=== PATIENT | female | born 1990 | race Caucasian/White ===

== ENCOUNTER 2019-04-13 19:55 | Inpatient (IN) | payer BC, OTHER ==
[2019-04-13 21:24] LABS: BASO % 0.2 % (0-2.0); EOS % 0.8 % (0-4.5); HEMATOCRIT 36.5 % (32.4-45.2); LYMPH % 28.7 % (8-40); MCH 27.4 pg (25.7-33.7); MEAN PLT VOLUME 8.3 fl (7.5-11.1); MONO % 7.4 % (3.8-10.2); NEUT % 62.9 % (42.8-82.8); PLATELET COUNT 263 K/MM3 (134-434); RDW 14.7 % (11.6-15.6); WHITE BLOOD COUNT 9.3 K/mm3 (4.0-10.0)
[2019-04-13] MEDS ORDERED: BUTORPHANOL TARTRATE 1 MG/ML VIAL IVPB ONE (21:28)
[2019-04-13] MEDS ORDERED: PROMETHAZINE HCL 25 MG/1 ML VIAL IVPUSH ONE (21:28)
[2019-04-13] MEDS ORDERED: DINOPROSTONE 10 MG VAGINAL SUPPOSITORY VG ONE (21:30)
[2019-04-13 21:38] LABS: PROTHROMBIN TIME (PATIENT) 11.8 SEC (9.7-13.0)
--- NOTE | 2019-04-13 21:40 | HP ---
Past Medical History - Primary Care Physician PCP:: Renae Olivares - Admission Chief Complaint: Gestational Hypertension History of Present Illness: EDC 04/01/19 EGA 41.5 weeks admitted for gestational HTN obesity and postdates for cervidil induction x 1 7lb 3 oz Limitations to Obtaining History: No Limitations - Past Medical History Cardiovascular: Yes: HTN, Other (h/o PVCs, last EKG WNL, asymptomatic currently) Pulmonary: Yes: Asthma (well controlled) Renal/: Yes: Hematuria (gross hematuria last week - microscopic hematuria in hospital over weekend), Renal Calculi (hospitalized for renal calculi during 2nd trimester). 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) - Past Surgical History Past Surgical History: Yes: None, Tonsillectomy (and uvula removal) Hx Myomectomy: No Hx Transabdominal Cerclage: No - Smoking History Smoking history: Never smoked Have you smoked in the past 12 months: No - Alcohol/Substance Use Hx Alcohol Use: No History of Substance Use: reports: None - Social History Usual Living Arrangement: Yes: With Spouse ADL: Independent History of Recent Travel: No Home Medications - Allergies Allergies/Adverse Reactions: Allergies Allergy/AdvReac Type Severity Reaction Status Date / Time corn Allergy Severe Swelling Verified 04/13/19 22:19 Latex, Natural Rubber Allergy Mild Rash Verified 04/13/19 22:19 Penicillins Allergy Mild Hives Verified 04/13/19 22:19 scarlett Allergy Mild Rash Verified 04/13/19 22:19 nut - unspecified Allergy Verified 04/13/19 22:19 PEACHES Allergy Mild Rash Uncoded 04/13/19 22:19 SEAFOOD Allergy Mild Vomiting Uncoded 04/13/19 22:19 - Home Medications Home Medications: Ambulatory Orders Vitamins (Sjr) - 1 tab PO DAILY 04/02/16 Family Disease History - Family Disease History Family Disease History: Other: Grandparent (nephrilithiasis), Brother ( nephrolithiasis) Review of Systems - Review of Systems Constitutional: reports: No Symptoms Eyes: reports: No Symptoms HENT: reports: No Symptoms Neck: reports: No Symptoms Cardiovascular: reports: No Symptoms Respiratory: reports: No Symptoms Gastrointestinal: reports: No Symptoms Genitourinary: reports: No Symptoms Breasts: reports: No Symptoms Reported Musculoskeletal: reports: No Symptoms Integumentary: reports: No Symptoms Neurological: reports: No Symptoms Endocrine: reports: No Symptoms Hematology/Lymphatic: reports: No Symptoms Psychiatric: reports: No Symptoms Physical Exam - Maternity Vital Signs: Vital Signs Temperature Pulse Rate 85 04/13/19 21:00 Respiratory Rate 20 04/13/19 21:00 Blood Pressure 142/80 04/13/19 21:00 O2 Sat by Pulse Oximetry (%) Constitutional: Yes: Well Nourished, Obese HENT: Yes: WNL Neck: Yes: WNL Cardiovascular: Yes: WNL Lungs: Clear to auscultation Breast(s): Yes: WNL - Abdominal Exam/OB Fundal Height: 41 Number of Fetuses: Single Contractions: No Category: I Accelerations: Non-Uniform Decelerations: None - Vaginal Exam/OB Dilatation (cm): 1-2 Effacement (%): 80 Amniotic Membrane Status: Intact Presentation: Vertex/Position Station: -2 - Physical Exam Musculoskeletal: Yes: WNL Extremities: Yes: WNL Psychiatric: Yes: WNL, Alert, Oriented Hemorrhage Risk Assessment - Risk Factors Risk Score: 0 Risk Level: Low Risk Problem List - Problems (1) Obesity affecting in third trimester Code(s): O99.213 - OBESITY COMPLICATING , THIRD TRIMESTER (2) Post-dates Code(s): O48.0 - POST-TERM Qualifiers: Post-term type: 40-42 weeks gestation Qualified Code(s): O48.0 - Post-term (3) Gestational hypertension affecting second Code(s): O13.9 - GESTATIONAL HTN W/O SIGNIFICANT PROTEINURIA, UNSP TRIMESTER Assessment/Plan Gestational DM x 1 obesity Cat 1 GBS neg Post dates Plan Cervidil continue present management
[2019-04-13 21:41] LABS: ACTIVATED PTT 27.5 SECONDS (25.2-36.5)
[2019-04-13 21:43] VITALS: BMI 48.2
[2019-04-13 21:43] LABS: BLOOD UREA NITROGEN 13.6 mg/dL (7-18); CREATININE 0.5 mg/dL (0.55-1.3); POTASSIUM 4.3 mmol/L (3.5-5.1)
[2019-04-14] MEDS: ELECTROLYTE-148 SOLN 1,000 ML IV SCH ×2 (09:15→15:00)
[2019-04-14] MEDS ORDERED: PROMETHAZINE HCL 25 MG/1 ML VIAL ONE (09:42)
[2019-04-14] MEDS ORDERED: BUTORPHANOL TARTRATE 1 MG/ML VIAL ONE ×2 (09:42)
--- NOTE | 2019-04-14 10:48 | PN ---
Ante-Partal Exam - Subjective Subjective: Pt uncomfortable s/p stadol/phenergan Vital Signs: Vital Signs Temperature 98.0 F 04/14/19 10:00 Pulse Rate 68 04/14/19 10:00 Respiratory Rate 20 04/14/19 10:00 Blood Pressure 112/68 04/14/19 10:00 O2 Sat by Pulse Oximetry (%) Bleeding: No Headache: No Visual changes: No Right upper quadrant pain: No - Contractions Contractions: Yes Regularity: Regular Intensity: Mild/Mod - Exam during Labor Heart Rate: 140 Variability: Moderate Category: I Monitor Accelerations: Absent Monitor Decelerations: None Exam: Vaginal Dilatation (cm): 4 Effacement (%): 80 Amniotic Membrane Status: Bulging Presentation: Vertex Station: -2 - Assessment/Plan Assessment/Plan: For epidural then AROM continue present management
[2019-04-14] MEDS ORDERED: LIDO 2%/EPI 1:200000 PRESRVFRE (20 ML SDVIAL) ONE ×3 (10:59→18:35)
[2019-04-14] MEDS ORDERED: BUPIVACAINE HCL/PF 2.5 MG/ML - 30 ML VIAL IJ ONE (10:59)
[2019-04-14] MEDS: FENTANYL/BUPIVACAINE/NS/PF - PCEA - 50 ML DISP.SYRIN EP SCH (11:00)
[2019-04-14] MEDS ORDERED: FENTANYL/BUPIVACAINE/NS/PF - PCEA - 50 ML DISP.SYRIN EP ONE ×2 (11:01→15:23)
[2019-04-14] MEDS ORDERED: NALOXONE HCL 0.4 MG/ML VIAL IVPUSH PRN (11:20)
--- NOTE | 2019-04-14 12:13 | PN ---
Ante-Partal Exam - Subjective Subjective: Pt s/p epidural, feeling comfortable. Vital Signs: Vital Signs Temperature 98.0 F 04/14/19 10:00 Pulse Rate 68 04/14/19 10:00 Respiratory Rate 20 04/14/19 10:00 Blood Pressure 112/68 04/14/19 10:00 O2 Sat by Pulse Oximetry (%) Bleeding: No Headache: No Visual changes: No Right upper quadrant pain: No - Contractions Contractions: Yes Regularity: Regular Intensity: Strong - Exam during Labor Heart Rate: 130 Category: II Monitor Decelerations: Variable (nonrecurrent, isolated) Exam: Vaginal Dilatation (cm): 5-6 Effacement (%): 90 Amniotic Membrane Status: Bulging (AROM for clear fluid at this exam) Presentation: Vertex Station: -1 - Assessment/Plan Assessment/Plan: Pt with 2 variable decelerations which prompted by evaluation cervix 5-6cm dilated, AROM for clear fluid, internal lead/FSE placed left tilt, oxygen applied continue to monitor
--- NOTE | 2019-04-14 15:30 | PN ---
Ante-Partal Exam - Subjective Subjective: Came to evaluate patient for prolonged deceleration. Pt with some discomfort , just bolused herself with epidural medication. Vital Signs: Vital Signs Temperature 98.3 F 04/14/19 13:00 Pulse Rate 81 04/14/19 14:15 Respiratory Rate 20 04/14/19 14:15 Blood Pressure 142/73 04/14/19 14:15 O2 Sat by Pulse Oximetry (%) 100 04/14/19 14:15 Bleeding: No Headache: No Visual changes: No Right upper quadrant pain: No Pain (scale 1-10): 6 - Contractions Regularity: Regular Intensity: Mod/Strong - Exam during Labor Category: II Monitor Decelerations: Prolonged Exam: Vaginal Dilatation (cm): 8 Effacement (%): 90 Amniotic Membrane Status: Ruptured Presentation: Vertex - Assessment/Plan Assessment/Plan: Pt with oxygen left lateral tilt continue close observation if has another prolonged deceleration without cervical dilation progress will plan for delivery
[2019-04-14] MEDS ORDERED: ONDANSETRON 4 MG/2 ML VIAL IVPUSH PRN (19:04)
[2019-04-14] MEDS ORDERED: IBUPROFEN 600 MG TABLET (FP) PO PRN (19:04)
[2019-04-14] MEDS ORDERED: BENZOCAINE 20% 57 GM BOTTLE TP PRN (19:56)
[2019-04-14] MEDS ORDERED: IBUPROFEN 800 MG/8 ML IJ IVPB PRN (19:56)
[2019-04-14] MEDS ORDERED: BENZOCAINE 28 GM HEMORRHOIDAL OINTMENT PR PRN (19:56)
[2019-04-14] MEDS ORDERED: WITCH HAZEL 50% (TUCKS) 40 PAD/JAR PAD TP PRN (19:56)
[2019-04-14] MEDS ORDERED: METHYLERGONOVINE MALEATE 0.2 MG/1 ML AMP IM PRN (19:56)
[2019-04-14] MEDS ORDERED: diphenhydrAMINE HCL 25 MG CAPSULE (FP) PO PRN (19:56)
[2019-04-14] MEDS ORDERED: ACETAMINOPHEN 325 MG TABLET (FP) PO PRN (19:56)
[2019-04-14] MEDS ORDERED: D5W-LR W/ 20 UNITS OXYTOCIN 20 UNIT/1,000 ML INFUS.BAG IV SCH (20:00)
--- NOTE | 2019-04-14 20:13 | OP ---
Operative Note - Note: Operative Date: 04/14/19 Pre-Operative Diagnosis: SIUP at 38.6 weeks, IOL for gestational HTN, Obesity, category 2 FHR tracing with prolonged decelerations Operation: primary LTCS Findings: normal b/l tubes and ovaries Post-Operative Diagnosis: Same as Pre-op Surgeon: Renae Olivares Sales Producer: Abraham Chávez Anesthesiologist/[employer]AR [employer] SALES SPECIALIST: Elvis Oreilly Anesthesia: Epidural Specimens Removed: placenta Estimated Blood Loss (mls): 800 Operative Report Dictated: Yes
[2019-04-14] MEDS ORDERED: oxyCODONE HCL 5 MG TABLET PO PRN (20:19)
[2019-04-15] MEDS: NITROFURANTOIN MACROCRYSTAL 50 MG CAPSULE (FP) PO SCH ×5 (00:25→23:21)
--- NOTE | 2019-04-15 06:24 | OP ---
DATE OF OPERATION: 04/14/2019 PREOPERATIVE DIAGNOSES: Single intrauterine at 38.6 weeks, induction of labor for gestational hypertension, prolonged decelerations, maternal obesity. POSTOPERATIVE DIAGNOSES: Single intrauterine at 38.6 weeks, induction of labor for gestational hypertension, prolonged decelerations, maternal obesity. PROCEDURE: Emergent Primary low transverse section. SURGEON: Renae Olivares DO ANESTHESIA: Elvis Oreilly MD AIRCRAFT STRUCTURAL DESIGN ENGINEER: JASMEET Wilburn ,- No physician available for assistance due to emergent condition of case. COMPLICATIONS: None. ESTIMATED BLOOD LOSS: 800 mL. SPECIMENS REMOVED: Placenta. DISPOSITION: Stable to PACU. COUNTS: Sponge, needle and instrument count correct. BRIEF HISTORY AND PROCEDURE: Patient is a 28-year-old female who was admitted to [facility] on April 13, 2019, for induction of labor secondary to gestational hypertension. She was given Cervidil the night of April 13, 2019. On the morning of April 14 was found to be 3 to 4 cm dilated. She received an epidural. Her membranes were artificially ruptured and she was monitored throughout the day. She spontaneously was in labor at this time without any induction agents. She had a category 2 heart rate tracing on and off throughout the day with recurrent and non recurrent variable decelerations. However, she was still making cervical dilation progress. At approximately 1830 hours the patient was examined and found to be 9 cm dilated and was found to have recurrent variable decelerations but still with good variability and accelerations. Approximately 20 minutes later patient began to have recurrent prolonged decelerations at which point it was planned to have a delivery. The patient was taken back to the operating room and placed in the dorsal supine position. The Dickson catheter had been earlier placed under sterile conditions as the patient had a working epidural. Epidural was bolused for the procedure. She was prepped and draped in the usual sterile fashion. A hard timeout was performed. A Pfannenstiel skin incision was created in the skin with a scalpel and carried to the underlying layer of rectus fascia sharply. The fascia was incised on either side of the midline and this fascia was incised in a superolateral direction sharply. The fascia was tented upward and dissected off the underlying layer of rectus muscle sharply. The musculature was identified and laterally. The peritoneum was entered bluntly and a bladder blade was inserted. A transverse incision was created in the lower uterine segment which was extended in a superolateral direction bluntly. The infant was delivered from the direct OP position with a noted loose body cord. Bilateral shoulders and remainder of delivered with ease. The cord was clamped and cut. The infant was taken over to the warmer to be assessed by neonatology staff where Apgars of 8 and 9 were assigned. Placenta was delivered with a 3-vessel cord and intact. The uterus was exteriorized, inspected and cleared of all remaining debris with a dry lap sponge. The hysterotomy was reapproximated in a single-layer closure using 0 Biosyn. The angles of the hysterotomy appear to extend down towards the cervix. These were repaired with figure-of-8 sutures using 0 Biosyn suture until excellent hemostasis was achieved and the hysterotomy was well approximated. Bilateral tubes and ovaries were noted to be normal. The uterus was placed back in the abdomen. Any areas of bleeding on the hysterotomy were repaired with a 0 Biosyn figure-of--8 suture. A piece of Surgicel was placed over the incision at this time to aid in hemostasis. The peritoneum was identified and reapproximated in a running closure using 2-0 chromic. The musculature was reapproximated with a single interrupted suture using 2-0 chromic. The fascia was reapproximated using 1 Vicryl in a running fashion. The subcutaneous tissue was irrigated and then reapproximated using 1 Vicryl in a running fashion. The skin was reapproximated using 3-0 Vicryl in subcuticular fashion and Steri-Strips were applied. The patient tolerated her procedure well and is recovering in stable condition in the PACU after the procedure at the time of this dictation. Sponge, needle and instrument counts were reported to be correct at the case. RENAE OLIVARES DO /[id number] MTDRaven
--- NOTE | 2019-04-15 08:07 | PN ---
Post Progress Note - Subjective Subjective: Pt seen and evaluated, doing well. Pain controlled. tolerating clears. Not yet OOB. patel draining clear yellow urine. Post Day: 1 Type of Delivery: Primary C/S Vital Signs: Vital Signs Temperature 98.1 F 04/15/19 05:54 Pulse Rate 88 04/15/19 05:54 Respiratory Rate 20 04/15/19 06:00 Blood Pressure 101/50 L 04/15/19 05:54 O2 Sat by Pulse Oximetry (%) 97 04/14/19 21:15 Uterus: Yes: Fundus Firm Incision: Yes: Dressing dry and intact Abdomen/GI: Yes: Abdomen soft Lochia: Yes: Rubra Lochia, amount: Moderate Extremities: Yes: Calves non-tender Perineum: Yes: Intact - Labs Labs: CBC WBC 9.3 K/mm3 (4.0-10.0) 04/13/19 21:00 RBC 4.40 M/mm3 (3.60-5.2) 04/13/19 21:00 Hgb 12.0 GM/dL (10.7-15.3) 04/13/19 21:00 Hct 36.5 % (32.4-45.2) D 04/13/19 21:00 MCV 83.0 fl (80-96) 04/13/19 21:00 MCH 27.4 pg (25.7-33.7) 04/13/19 21:00 MCHC 33.0 g/dl (32.0-36.0) 04/13/19 21:00 RDW 14.7 % (11.6-15.6) 04/13/19 21:00 Plt Count 263 K/MM3 (134-434) 04/13/19 21:00 MPV 8.3 fl (7.5-11.1) 04/13/19 21:00 Absolute Neuts (auto) 5.8 K/mm3 (1.5-8.0) 04/13/19 21:00 Neutrophils % 62.9 % (42.8-82.8) 04/13/19 21:00 Lymphocytes % 28.7 % (8-40) D 04/13/19 21:00 Monocytes % 7.4 % (3.8-10.2) 04/13/19 21:00 Eosinophils % 0.8 % (0-4.5) 04/13/19 21:00 Basophils % 0.2 % (0-2.0) 04/13/19 21:00 Nucleated RBC % 0 % (0-0) 04/13/19 21:00 Problem List - Problems (1) delivery delivered Code(s): O82 - ENCOUNTER FOR DELIVERY WITHOUT INDICATION (2) Gestational hypertension affecting second Code(s): O13.9 - GESTATIONAL HTN W/O SIGNIFICANT PROTEINURIA, UNSP TRIMESTER Assessment/Plan cbc pending OOB Lovenox after cbc advance diet as tolerated routine care
[2019-04-15 08:13] LABS: HEMATOCRIT 30.6 % (32.4-45.2); HEMOGLOBIN 10.2 GM/dL (10.7-15.3); MCHC 33.3 g/dl (32.0-36.0); MEAN PLT VOLUME 7.9 fl (7.5-11.1); PLATELET COUNT 171 K/MM3 (134-434); RBC 3.65 M/mm3 (3.60-5.2); RDW 14.9 % (11.6-15.6); WHITE BLOOD COUNT 10.1 K/mm3 (4.0-10.0)
[2019-04-15] MEDS: PRENATAL VITAMINS W/ FOLIC ACID TABLET (FP) PO SCH (09:43)
[2019-04-15] MEDS: SIMETHICONE 80 MG TAB.CHEW (FP) PO PRN ×3 (10:10→22:52)
[2019-04-15] MEDS: oxyCODONE HCL 5 MG TABLET PO PRN ×3 (10:10→22:51)
[2019-04-15] MEDS: IBUPROFEN 600 MG TABLET (FP) PO PRN (10:10)
[2019-04-15] MEDS: ENOXAPARIN NA (PORCINE) 40 MG/0.4 ML DISP.SYRIN SQ SCH (14:07)
--- NOTE | 2019-04-15 15:19 | PN ---
Progress Note (short form) - Note Progress Note: ANESTHESIA POSTOP 28 YO FEMALE POD#1 S/P C/SECTION, SPINAL Patient resting in bed. No complaints. Pain adequately controlled VSS, Afebrile Continue current care, encouraged ambulation, no anesthetic complications
[2019-04-15] MEDS: ACETAMINOPHEN 325 MG TABLET (FP) PO PRN ×2 (16:33→22:50)
[2019-04-15] MEDS ORDERED: BISACODYL 10 MG SUPP.RECT PR PRN (19:57)
[2019-04-16] MEDS: oxyCODONE HCL 5 MG TABLET PO PRN ×3 (04:22→22:27)
[2019-04-16] MEDS: ACETAMINOPHEN 325 MG TABLET (FP) PO PRN ×3 (04:23→22:31)
[2019-04-16] MEDS: NITROFURANTOIN MACROCRYSTAL 50 MG CAPSULE (FP) PO SCH ×3 (05:48→18:04)
--- NOTE | 2019-04-16 07:02 | PN ---
Post Progress Note - Subjective Subjective: 28 yo Para 2 status post primary , seen and evaluated. Doing well. Post Day: 2 Type of Delivery: Primary C/S Vital Signs: Vital Signs Temperature 98.1 F 04/15/19 21:54 Pulse Rate 86 04/15/19 21:54 Respiratory Rate 18 04/15/19 21:54 Blood Pressure 132/76 04/15/19 21:54 O2 Sat by Pulse Oximetry (%) 97 04/14/19 21:15 Breast Exam: Yes: Soft Uterus: Yes: Fundus @ umbilicus Incision: Yes: Dressing dry and intact Abdomen/GI: Yes: Abdomen soft, Tolerating PO Lochia: Yes: Rubra Lochia, amount: Small Extremities: Yes: Calves non-tender Perineum: Yes: Intact Activity: Ambulating - Labs Labs: CBC WBC 10.1 K/mm3 (4.0-10.0) H 04/15/19 07:52 RBC 3.65 M/mm3 (3.60-5.2) 04/15/19 07:52 Hgb 10.2 GM/dL (10.7-15.3) L 04/15/19 07:52 Hct 30.6 % (32.4-45.2) L D 04/15/19 07:52 MCV 84.0 fl (80-96) 04/15/19 07:52 MCH 28.0 pg (25.7-33.7) 04/15/19 07:52 MCHC 33.3 g/dl (32.0-36.0) 04/15/19 07:52 RDW 14.9 % (11.6-15.6) 04/15/19 07:52 Plt Count 171 K/MM3 (134-434) D 04/15/19 07:52 MPV 7.9 fl (7.5-11.1) 04/15/19 07:52 Absolute Neuts (auto) 5.8 K/mm3 (1.5-8.0) 04/13/19 21:00 Neutrophils % 62.9 % (42.8-82.8) 04/13/19 21:00 Lymphocytes % 28.7 % (8-40) D 04/13/19 21:00 Monocytes % 7.4 % (3.8-10.2) 04/13/19 21:00 Eosinophils % 0.8 % (0-4.5) 04/13/19 21:00 Basophils % 0.2 % (0-2.0) 04/13/19 21:00 Nucleated RBC % 0 % (0-0) 04/13/19 21:00 Assessment/Plan Status post primary Ambulation Analgesia as needed Continue post op care
[2019-04-16] MEDS: IBUPROFEN 600 MG TABLET (FP) PO PRN ×2 (08:43→17:59)
[2019-04-16] MEDS: SIMETHICONE 80 MG TAB.CHEW (FP) PO PRN ×3 (08:45→22:30)
[2019-04-16] MEDS ORDERED: DIPHTH,PERTUSS(ACELL),TET 0.5 ML DISP.SYRIN IM ONE (10:00)
[2019-04-16] MEDS: PRENATAL VITAMINS W/ FOLIC ACID TABLET (FP) PO SCH (10:36)
[2019-04-16] MEDS: ENOXAPARIN NA (PORCINE) 40 MG/0.4 ML DISP.SYRIN SQ SCH (10:36)
[2019-04-16] MEDS ORDERED: SENNOSIDES/DOCUSATE COMBO (SENNA PLUS) TABLET (UD) PO PRN (22:00)
[2019-04-16] MEDS: FENTANYL/BUPIVACAINE/NS/PF - PCEA - 50 ML DISP.SYRIN EP SCH ×2 (22:22→22:23)
[2019-04-17] MEDS: IBUPROFEN 600 MG TABLET (FP) PO PRN (00:13)
[2019-04-17] MEDS: NITROFURANTOIN MACROCRYSTAL 50 MG CAPSULE (FP) PO SCH ×3 (00:13→12:21)
[2019-04-17] MEDS: oxyCODONE HCL 5 MG TABLET PO PRN (05:20)
[2019-04-17] MEDS: ACETAMINOPHEN 325 MG TABLET (FP) PO PRN ×2 (05:20→11:00)
[2019-04-17 08:11] LABS: HEMATOCRIT 29.6 % (32.4-45.2); HEMOGLOBIN 9.9 GM/dL (10.7-15.3); MCH 27.9 pg (25.7-33.7); MCHC 33.4 g/dl (32.0-36.0); MEAN CELL VOLUME 83.5 fl (80-96); MEAN PLT VOLUME 7.9 fl (7.5-11.1); PLATELET COUNT 198 K/MM3 (134-434); RBC 3.55 M/mm3 (3.60-5.2); RDW 14.9 % (11.6-15.6); WHITE BLOOD COUNT 8.7 K/mm3 (4.0-10.0)
[2019-04-17] MEDS: ENOXAPARIN NA (PORCINE) 40 MG/0.4 ML DISP.SYRIN SQ SCH (09:02)
[2019-04-17] MEDS: PRENATAL VITAMINS W/ FOLIC ACID TABLET (FP) PO SCH (09:03)
--- NOTE | 2019-04-17 09:57 | DS ---
Physical Exam-ELECTROPLATING TECHNICIAN Vital Signs: Vital Signs Temperature 98.7 F 04/16/19 22:00 Pulse Rate 94 H 04/16/19 22:00 Respiratory Rate 18 04/16/19 22:00 Blood Pressure 137/62 04/16/19 22:00 O2 Sat by Pulse Oximetry (%) 97 04/14/19 21:15 Constitutional: Yes: Well Nourished, Obese Gastrointestinal: Yes: WNL, Soft ....Post : Yes: Uterus firm, Uterus non-tender Breast(s): Yes: WNL Musculoskeletal: Yes: WNL Edema: Yes Edema: LLE: Trace, RLE: Trace Neurological: Yes: WNL, Alert, Oriented Labs: CBC, BMP 04/17/19 07:00 04/13/19 21:00 Delivery - Delivery Section: Low Flap Transverse Type of Anesthesia: Epidural Episiotomy/Laceration: None EBL (cc): 800 Delivery, Single - Stages of Labor Date 1st Stage Initiatied: 04/14/19 Time 1st Stage Initiated: 07:00 Date of Delivery: 04/14/19 Time of Delivery: 18:59 Time Placenta Delivered: 19:00 Placenta: Yes: Manual Removal - Condition of Infant Strap Cutting Machine Operator/Engineer Fishing Vessel Present: Yes Name: Julia Domingo Gender: Female Weight: 7 lb 9 oz Position: OP Total Hours ROM (Hrs/Mins): 7h15m - 1 Minute Total Score: 8 5 Minutes Total Score: 9 - Feeding Plan Initial Plan: Exclusive throughout hospitalization Discharge Summary Reason For Visit: INDUCTION Current Active Problems delivery delivered (Acute) Gestational hypertension affecting second (Acute) Obesity affecting in third trimester (Acute) Post-dates (Acute) Procedures: Principal: Section - Instructions Referrals: Sandra Rachel MD [Staff Physician] - - Home Medications Comprehensive Discharge Medication List: Ambulatory Orders Vitamins (Sjr) - 1 tab PO DAILY 04/02/16 Ibuprofen [Motrin -] 600 mg PO QID #28 tablet 04/17/19 Nitrofurantoin Macrocrystal [Macrodantin] 100 mg PO BID 5 Days #10 capsule 04/17
[2019-04-17] MEDS: SIMETHICONE 80 MG TAB.CHEW (FP) PO PRN (11:01)
[2019-04-17 12:14] VITALS: BP 128/74; PULSE 105; TEMP 98.3
--- NOTE | 2019-04-21 17:10 | PATH ---
Surgical Pathology Report Patient Name: SCOTT OCONNELL Med. Rec. 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 Specimen(s) Received PLACENTA Clinical History , at 41 weeks, for primary Final Diagnosis PLACENTA, SECTION: 617 G THIRD TRIMESTER PLACENTA WITH TRIVASCULAR UMBILICAL CORD AND MILD ACUTE CHORIOAMNIONITIS. Electronically Signed Stefani Orlando M.D. Gross Description The specimen is received fresh labeled placenta and is a 617 gram, 15.5 x 13.5 x 3.5 cm. placenta with attached membranes and umbilical cord. The attached membranes are translucent. The eccentrically attached umbilical cord measures 18 cm. in length and averages 0.8 cm. in diameter. No true knots or strictures are identified. Cut surface of the umbilical cord reveals 3 vessels. The surface is mayberry-blue with minimal fibrin deposition and appropriate caliber vessels. The maternal surface is red-brown with focal defects. Sectioning reveals red-brown, spongy parenchyma. No lesions are identified. 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 AE/04/20/2019 ebram/04/20/2019
== END 2019-04-17 15:05 | disposition home or self-care (01) | DRG 788 ==
LOC: JLDR 19:55 → J3W 04-14 00:15 → JLDR 04-14 09:34 → J3W 04-14 22:00
PROVIDERS: ADMIT Obstetrics & Gynecology; ATTEND Obstetrics & Gynecology
PROC: 10D00Z1 Extraction of Products of Conception, Low, Open Approach (ICD-10-PCS; principal; 2019-04-14)
DX: O76 Abnormality in fetal heart rate and rhythm complicating labor and delivery (principal); O48.0 Post-term pregnancy; Z3A.41 41 weeks gestation of pregnancy; O13.4 Gestational [pregnancy-induced] hypertension without significant proteinuria, complicating childbirth; O99.214 Obesity complicating childbirth; E66.9 Obesity, unspecified; Z37.0 Single live birth
CPT/HCPCS: 36415; 36600; 80048; 82803; 85025; 85027; 85461; 85610; 85730; 86593; 86850; 86870; 86900; 86901; 86902; 86999; 87389; 88307-TC; 90715

== ENCOUNTER 2019-04-20 20:10 | Emergency (ER) | payer BC, OTHER ==
--- NOTE | 2019-04-20 20:18 | PDOC ---
Rapid Medical Evaluation Time Seen by Provider: 04/20/19 20:13 Medical Evaluation: Allergies Allergy/AdvReac Type Severity Reaction Status Date / Time corn Allergy Severe Swelling Verified 04/13/19 22:19 Latex, Natural Rubber Allergy Mild Rash Verified 04/13/19 22:19 Penicillins Allergy Mild Hives Verified 04/13/19 22:19 scarlett Allergy Mild Rash Verified 04/13/19 22:19 nut - unspecified Allergy Verified 04/13/19 22:19 PEACHES Allergy Mild Rash Uncoded 04/13/19 22:19 SEAFOOD Allergy Mild Vomiting Uncoded 04/13/19 22:19 04/20/19 20:13 I have performed a brief in-person evaluation of this patient. The patient presents with a chief complaint of: PPD 6 p/w 3 days of fever/ chills (Tmax 102.7), lower abdominal pain, burning on urination, currently being treated with cipro and clinda, day 1, given by her OB but she is feeling worse. I have ordered the following: CBC, CMP, blood cultures, UA, UCx. The patient will proceed to the ED for further evaluation. 04/20/19 20:17 Discharge Disposition - Diagnosis Fever Qualifiers: Fever type: unspecified Qualified Code(s): R50.9 - Fever, unspecified - Referrals Referrals: Renae Olivares DO [Primary Care Provider] - - Patient Instructions - Post Discharge Activity
[2019-04-20 20:19] VITALS: BMI 46.5
[2019-04-20] MEDS ORDERED: SODIUM CHLORIDE 1,000 ML IV STA (20:55)
--- NOTE | 2019-04-20 20:57 | PDOC ---
History of Present Illness - General Chief Complaint: Redness To Affected Area Stated Complaint: FEVER, 6 DAYS POST C SECTION Time Seen by Provider: 04/20/19 20:13 Past History - Past Medical History Allergies/Adverse Reactions: Allergies Allergy/AdvReac Type Severity Reaction Status Date / Time corn Allergy Severe Swelling Verified 04/20/19 20:20 Latex, Natural Rubber Allergy Mild Rash Verified 04/20/19 20:20 Penicillins Allergy Mild Hives Verified 04/20/19 20:20 scarlett Allergy Mild Rash Verified 04/20/19 20:20 nut - unspecified Allergy Verified 04/20/19 20:20 PEACHES Allergy Mild Rash Uncoded 04/20/19 20:20 SEAFOOD Allergy Mild Vomiting Uncoded 04/20/19 20:20 Home Medications: Ambulatory Orders Vitamins (Sjr) - 1 tab PO DAILY 04/02/16 Ibuprofen [Motrin -] 600 mg PO QID #28 tablet 04/17/19 Ciprofloxacin [Cipro (Restricted To Id)] 500 mg PO Q12H 04/21/19 Clindamycin [Cleocin -] 300 mg PO TID 04/21/19 Asthma: No Cancer: No Cardiac Disorders: No COPD: No Diabetes: No HTN: No Seizures: No Thyroid Disease: No - Suicide/Smoking/Psychosocial Hx Smoking History: Unknown if ever smoked Have you smoked in the past 12 months: No Information on smoking cessation initiated: No Hx Alcohol Use: No Drug/Substance Use Hx: No Hx Substance Use Treatment: No *Physical Exam - Vital Signs Last Vital Signs Temp Pulse Resp BP Pulse Ox 99.3 F 138 H 16 126/78 97 04/20/19 20:17 04/20/19 20:17 04/20/19 20:17 04/20/19 20:17 04/20/19 20:17 ED Treatment Course - LABORATORY CBC & Chemistry Diagram: 04/20/19 21:25 04/20/19 21:25 Medical Decision Making - Medical Decision Making 28yo F with (had a 6 days ago) PMH of gestational HTN , asthma, PCOS presenting with fever and abdominal pain. Patient saw her employment service specialist today because she had a fever of 101 yesterday and 102 today. Her provider prescriber her clindamycina and ciprofloxacin to cover her both UTI which was confirmed with urinalysis and possible surgical site infection. Patient took these medications today but feels like her pain worsened: "my belly feels swollen" and "fullness." Has been taking motrin every six hours as instructed, most recently at 6:30pm. Also taking percocet for pain, last at 5:30pm. Patient reports dysuria since after her . Denies vaginal discharge other than lochia. Also reporting headache, back pain, lightheadedness. No chest pain or shortness of breath. 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 ROS: Constitutional: +fever, +chills HEENT: no throat pain, no dysphagia Cardiovascular: no chest pain, no palpitations Respiratory: no cough, no shortness of breath Gastrointestinal: +abdominal pain, no diarrhea Genitourinary: +dysuria, no hematuria Musculoskeletal: no myalgia, no arthralgia Skin: no rash, no itching Neurologic: +headache, +weakness PE: General: Awake, alert, and fully oriented, in no acute distress Head: No signs of trauma Eyes: EOMI, sclera anicteric ENT: Moist mucus membranes Neck: Normal ROM, supple Lungs: Lungs clear, Normal breath sounds Cardio: Regular rhythm, S1 and S2 present Abdomen: Soft. Tender to palpation in lower abdomen. No guarding, no rebound, no masses. No CVA tenderness. Surgical site along transverse lower abdomen is with mild erythema and edema and without discharge. Extremities: Normal range of motion, Distal pulses present SKIN: Warm, Dry, normal turgor Neurologic: Cranial nerves II through XII grossly intact. Normal speech ED Course/MDM: DDX including but not limited to UTI, pyelonephritis, surgical site infection, endometritis, retained products Vitals significant for fever and tachycardia Labs Fluids Tylenol 04/20/19 20:[address] Olivares, 04/20/19 20:58 CBC WBC 11.4 K/mm3 (4.0-10.0) H 04/20/19 21:25 RBC 3.61 M/mm3 (3.60-5.2) 04/20/19 21:25 Hgb 9.7 GM/dL (10.7-15.3) L 04/20/19 21:25 Hct 30.2 % (32.4-45.2) L 04/20/19 21:25 MCV 83.6 fl (80-96) 04/20/19 21:25 MCH 26.9 pg (25.7-33.7) 04/20/19 21:25 MCHC 32.1 g/dl (32.0-36.0) 04/20/19 21:25 RDW 15.4 % (11.6-15.6) 04/20/19 21:25 Plt Count 301 K/MM3 (134-434) D 04/20/19 21:25 MPV 7.4 fl (7.5-11.1) L 04/20/19 21:25 Absolute Neuts (auto) 9.2 K/mm3 (1.5-8.0) H 04/20/19 21:25 Neutrophils % 81.1 % (42.8-82.8) D 04/20/19 21:25 Lymphocytes % 10.5 % (8-40) D 04/20/19 21:25 Monocytes % 7.6 % (3.8-10.2) 04/20/19 21:25 Eosinophils % 0.6 % (0-4.5) 04/20/19 21:25 Basophils % 0.2 % (0-2.0) 04/20/19 21:25 Nucleated RBC % 0 % (0-0) 04/20/19 21:25 Mild leukocytosis CMP Sodium 141 mmol/L (136-145) 04/20/19 21:25 Potassium 3.7 mmol/L (3.5-5.1) 04/20/19 21:25 Chloride 103 mmol/L (98-107) 04/20/19 21:25 Carbon Dioxide 25 mmol/L (21-32) 04/20/19 21:25 Anion Gap 14 MMOL/L (8-16) 04/20/19 21:25 BUN 13.1 mg/dL (7-18) 04/20/19 21:25 Creatinine 0.7 mg/dL (0.55-1.3) 04/20/19 21:25 Est GFR (CKD-EPI)AfAm 134.75 04/20/19 21:25 Est GFR (CKD-EPI)NonAf 116.26 04/20/19 21:25 Random Glucose 82 mg/dL (74-106) 04/20/19 21:25 Calcium 7.8 mg/dL (8.5-10.1) L 04/20/19 21:25 Total Bilirubin 0.7 mg/dL (0.2-1) 04/20/19 21:25 AST 13 U/L (15-37) L 04/20/19 21:25 ALT 26 U/L (13-61) 04/20/19 21:25 Alkaline Phosphatase 109 U/L (45-117) 04/20/19 21:25 Total Protein 5.6 g/dl (6.4-8.2) L 04/20/19 21:25 Albumin 2.0 g/dl (3.4-5.0) L 04/20/19 21:25 Electrolytes unremarkable Cr normal UA positive for infection Discussed case with Dr. Rachel who recommends fluid hydration and 2mg ampicillin if the patient is . Low likelihood of endometritis as patient is now six days and this infection typically appears earlier. 04/20/19 22:15 Patient is PCN allergic. PCN gives her hives Ceftriaxone has low cross-reactivity. We will give her ceftriaxone and monitor her. T=102.7 1g Ofirmev ordered 04/20/19 22:30 Patient reporting she feels better. Can continue on home medications and follow up with employment service specialist tomorrow Discharged with return precautions 04/24/19 02:11 *DC/Admit/Observation/Transfer Diagnosis at time of Disposition: Fever Qualifiers: Fever type: unspecified Qualified Code(s): R50.9 - Fever, unspecified UTI (urinary tract infection) Qualifiers: Urinary tract infection type: site unspecified Hematuria presence: with hematuria Qualified Code(s): N39.0 - Urinary tract infection, site not specified - Discharge Dispostion Disposition: HOME Condition at time of disposition: Improved - Referrals Referrals: Renae Olivares DO [Primary Care Provider] - - Patient Instructions Printed Discharge Instructions: DI for Urinary Tract Infection (UTI) Additional Instructions: You came into the emergency department for fever and abdominal pain. Urinalysis was positive for UTI. We discussed the case with the on-call employment service specialist who recommends that you continue your already prescribed antibiotics and follow-up tomorrow. Follow-up with your employment service specialist tomorrow to discuss this ED visit and to further evaluate your symptoms. Your workup is not complete until you do so. Continue taking home meds as prescribed. Immediate medical attention is required if you develop: severe abdominal pain, high fevers, persistent nausea, vomiting, or any new or concerning symptoms. If you think you are having an emergency, call for emergency medical services or present to the emergency department right away. - Post Discharge Activity
[2019-04-20 21:41] LABS: BASO % 0.2 % (0-2.0); EOS % 0.6 % (0-4.5); HEMATOCRIT 30.2 % (32.4-45.2); HEMOGLOBIN 9.7 GM/dL (10.7-15.3); LYMPH % 10.5 % (8-40); MCH 26.9 pg (25.7-33.7); MCHC 32.1 g/dl (32.0-36.0); MEAN CELL VOLUME 83.6 fl (80-96); MEAN PLT VOLUME 7.4 fl (7.5-11.1); MONO % 7.6 % (3.8-10.2); NEUT % 81.1 % (42.8-82.8); PLATELET COUNT 301 K/MM3 (134-434); RBC 3.61 M/mm3 (3.60-5.2); RDW 15.4 % (11.6-15.6); WHITE BLOOD COUNT 11.4 K/mm3 (4.0-10.0)
[2019-04-20 21:53] LABS: INR 1.46 (0.83-1.09); PROTHROMBIN TIME (PATIENT) 17.3 SEC (9.7-13.0)
[2019-04-20 21:58] LABS: EPI CELLS >36 /HPF (0-5/HPF); PH,URINE 5.5 (5.0-8.0); URINE APPEARANCE CLEAR; URINE BACTERIA 8.5 /hpf (NEGATIVE); URINE BILIRUBIN NEGATIVE (NEGATIVE); URINE COLOR DK YELLOW; URINE GLUCOSE (UA) NEGATIVE (NEGATIVE); URINE KETONE TRACE (NEGATIVE); URINE LEUK ESTERASE 2+ (NEGATIVE); URINE NITRITE NEGATIVE (NEGATIVE); URINE PROTEIN 1+ (NEGATIVE); URINE RBC 289 /hpf (0-4); URINE WBC 42 /hpf (0-5)
[2019-04-20 22:18] LABS: BILIRUBIN,TOTAL 0.7 mg/dL (0.2-1); BLOOD UREA NITROGEN 13.1 mg/dL (7-18); CALCIUM 7.8 mg/dL (8.5-10.1); CREATININE 0.7 mg/dL (0.55-1.3); POTASSIUM 3.7 mmol/L (3.5-5.1); TOT PROT 5.6 g/dl (6.4-8.2)
[2019-04-20 22:21] LABS: HYALINE CASTS 1 /lpf (0-8)
[2019-04-20] MEDS ORDERED: CEFTRIAXONE 1,000 MG in DEXTROSE 5%-WATER - 50 ML IVPB ONE (22:26)
--- NOTE | 2019-04-20 22:27 | PDOC ---
Attending Attestation - Resident Resident Name: Miky Gutierrezth - ED Attending Attestation I have performed the following: I have examined & evaluated the patient, The case was reviewed & discussed with the resident, I agree w/resident's findings & plan, Exceptions are as noted - HPI HPI: 04/20/19 22:19 28 female who had c section six days ago and now has erythema and tenderness to the site presents with report of fever of 102 earlier today, 6 out of 10 pain - Physicial Exam PE: 04/20/19 22:33 wnwd febrile 28 yo female with c/o fever,chills,erythema and tenderness around c section head ncat neck supple lungs cta b/l cvs tachycardia abd there is erythema extending onto the abdomen above and below the c section incision skin warm and dry extremities no erythema neuro axox3,ambulatory 04/20/19 22:52 - Medical Decision Making 04/20/19 22:33 28 yo female with 102.9 fever,chills and erythema at surgical site being admitted for IV antibiotics, blood cultures sent 04/20/19 22:55 Dr Gutierrez is covering for Dr Olivares and recommends IV antibiotics 04/21/19 01:36 pt given a dose of IV antibiotcs,given tylenol pt is already prescribed clindamycin and cipro and 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
[2019-04-20] MEDS ORDERED: ACETAMINOPHEN 1000 MG/100 ML VIAL (NON FORMULARY) IVPB ONE (22:30)
[2019-04-20] MEDS ORDERED: ACETAMINOPHEN INJECTION 100 ML IVPB ONE (22:38)
[2019-04-20] MEDS ORDERED: CEFTRIAXONE 1 GM/50 ML BAG ONE (22:38)
[2019-04-21 00:46] VITALS: BP 105/50; PULSE 113
[2019-04-21 02:16] VITALS: TEMP 99.8
== END 2019-04-21 02:16 | disposition home or self-care (01) ==
LOC: JER 20:10
PROC: 3E033NZ Introduction of Analgesics, Hypnotics, Sedatives into Peripheral Vein, Percutaneous Approach (ICD-10-PCS; principal; 2019-04-20)
PROC: 3E03329 Introduction of Other Anti-infective into Peripheral Vein, Percutaneous Approach (ICD-10-PCS; 2019-04-20)
PROC: 3E0337Z Introduction of Electrolytic and Water Balance Substance into Peripheral Vein, Percutaneous Approach (ICD-10-PCS; 2019-04-20)
DX: N39.0 Urinary tract infection, site not specified (principal); I10 Essential (primary) hypertension; J45.909 Unspecified asthma, uncomplicated; E28.2 Polycystic ovarian syndrome
CPT/HCPCS: 36415; 80053; 81003; 85025; 85610; 85730; 87040; 87086; 99283-25; J0131; J7030